=== PATIENT | male | born 1950 | race Caucasian/White ===

== ENCOUNTER → 2016-09-12 | Outpatient (CLI) | payer OTHER ==
--- NOTE | 2016-09-12 18:29 | CPEEG ---
[f rep st] ELECTROENCEPHALOGRAM FOUR-HOUR VIDEO EEG DATE OF STUDY: 09/12/2016 INTERPRETATION: This 4-hour video EEG is abnormal due to the presence of generalized atypical spike and wave discharges. 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 During the video EEG monitoring session, the patient did not have any clinical events. REPORT: This 4-hour video EEG contains 9 Hz alpha to the posterior head regions. The primary feature of this recording was the presence of generalized atypical spike and wave discharges. There was some additional activation with hyperventilation. There was no additional activation with photic stimulation. The patient became drowsy and fell asleep during the study. During drowsiness and sleep, there was increased activation of generalized atypical spike and wave discharges. These were typically anterior dominant in terms of amplitudes and had shifting asymmetry. During the video EEG monitoring session, the patient did not have any clinical events. /[id number]/MODL MTDD
== END ==
LOC: FIMAGING 07:25
PROVIDERS: ATTEND Psychiatry & Neurology Neurology
DX: G40.909 Epilepsy, unspecified, not intractable, without status epilepticus (principal)

== ENCOUNTER 2016-10-17 03:24 | Emergency (ER) | payer OTHER ==
[2016-10-17 03:33] VITALS: TEMP 98.1
[2016-10-17] MEDS ORDERED: KETOROLAC 15 MG/1 ML SDV ONE (03:33)
[2016-10-17] MEDS ORDERED: KETOROLAC 30 MG/1 ML SDV IVP ONE (03:40)
--- NOTE | 2016-10-17 04:07 | EDPHY ---
H & P Stated Complaint: spontaneous left globe rupture Time Seen by Provider: 10/17/16 03:34 HPI/ROS: HPI The patient presents brought in by ambulance with concern for left globe rupture after acute vision loss. On September 24, the patient had an ophthalmological procedure with Dr. Kamran Flowers, he had scrubbing of a scleral band with an amniotic membrane placed with a hard contact. Over the last several days he had had increased pain of the left off eye. He was seen by an tunnel drier operator yesterday and reports that things looked okay. He has been using antibiotic eyedrops as well as steroid eyedrops. Tonight, he leaned over to chicken picker his bottle of eyedrops and felt sudden onset of fluid which was thick from his left eye. Had severe pain and his vision immediately was diminished. REVIEW OF SYSTEMS Constitutional: No fever, no chills. Eyes: See HPI ENT: No sore throat. Skin: No rashes. Neurological: No headache. PMHx: As above, history of retinal detachment with vitrectomy Soc Hx: Housed PHYSICAL General Appearance: Alert, uncomfortable Eyes: Left eye with thick drainage surrounding eyelid, limited examination because of pain, globe appears flat and opaque ENT, Mouth: Mucous membranes moist Respiratory: There are no retractions, lungs are clear to auscultation Cardiovascular: Regular rate and rhythm Gastrointestinal: Abdomen is soft and non-tender, no masses, bowel sounds normal Neurological: A&O, moves all extremities Skin: Warm and dry, no rashes Musculoskeletal: Neck is supple non tender Extremities: symmetrical, full range of motion Psychiatric: Patient is oriented X 3, there is no agitation Source: Patient, EMS - Medical/Surgical History Hx Asthma: No Hx Chronic Respiratory Disease: No Hx Diabetes: No Hx Cardiac Disease: No Hx Renal Disease: No Hx Cirrhosis: No Hx Alcoholism: No Hx HIV/AIDS: No Hx Splenectomy or Spleen Trauma: No Other PMH: psh: r knee; testicular removal R; lymphnoid disection; T&A; l eye;. PMH: testicular ca; seizures; - Social History Smoking Status: Never smoked Constitutional: Initial Vital Signs Temperature (C) 36.7 C 10/17/16 03:30 Heart Rate 74 10/17/16 03:30 Blood Pressure 157/107 H 10/17/16 03:30 O2 Delivery Mode Nasal Cannula O2 (L/minute) 2 Allergies/Adverse Reactions: No Known Allergies Allergy (Unverified 10/17/16 03:29) Home Medications: Medication Instructions Recorded Dilantin 06/01/15 PHENobarbital 06/01/15 Phenytoin 10/17/16 Medical Decision Making - Diagnostics Imaging: CT orbits without contrast demonstrates left globe rupture, discussed with Dr. Ortega of Radiology. ED Course/Re-evaluation: 4:05 a.m.- patient has received morphine and Toradol for his pain, however pain persists. I will give additional morphine. We have put out a page to the patient's ophthalmology group. His CT scan does reveal left globe rupture. 4:30 a.m.- I spoke with Dr. Flowers the patient's tunnel drier operator. [place] and is unable to assist at this time. He feels the patient needs a corneal specialist. We do not have an tunnel drier operator with this expertise here. I will begin to look to transfer the patient to [facility]. 5:00 a.m.- I have discussed the case with the [facility] doctor line. I have spoken with the tunnel drier operator Dr. Chester who will accept the patient for transfer. I discussed the case with the ER doctor Dr. Gross who is also aware of the patient. The patient has received antibiotics, tetanus vaccine was administered about 1 year ago, we are arranging for transfer. The patient is having significant pain and we will continue to treat this as needed. Differential Diagnosis: This is a 65-year-old man with recent left eye operation who now presents with concern for globe rupture spontaneously. Differential diagnosis includes globe rupture retinal detachment, corneal abrasion, corneal laceration. - Data Points Laboratory Results: 10/17/16 03:24 POC Hgb 16.0 gm/dL gm/dL (14.5-17.3) POC Hct 47 % % (42.8-50.6) POC Sodium 142 mEq/L mEq/L (134-144) POC Potassium 4.1 mEq/L mEq/L (3.3-5.0) POC Chloride 104 mEq/L mEq/L (96-108) POC BUN 14 mg/dL mg/dL (7-23) POC Creatinine 1.0 mg/dL mg/dL (0.8-1.5) POC Glucose 101 mg/dL H mg/dL (70-100) Medications Given: Discontinued Medications Hydromorphone HCl (Dilaudid) 1 mg IVP EDNOW ONE Stop: 10/17/16 04:35 Last Admin: 10/17/16 04:10 Dose: 1 mg Morphine Sulfate (Morphine) 2 mg IVP EDNOW ONE Stop: 10/17/16 03:46 Last Admin: 10/17/16 03:45 Dose: 2 mg Point of Care Test Results: 10/17/16 03:24 POC Sodium 142 POC Potassium 4.1 POC Chloride 104 POC BUN 14 POC Creatinine 1.0 POC Glucose 101 H Departure - Departure Disposition: Acute Care Hospital [facility] Clinical Impression: Ruptured globe, left eye Condition: Fair Referrals: Patient,NotPresent [Unknown] - As per Instructions
[2016-10-17] MEDS ORDERED: HYDROmorphONE/DILAUDID 1 MG/ML SYR ONE (04:19)
[2016-10-17] MEDS ORDERED: VANCOMYCIN HCL/NORMAL SALINE 250 ML IV ONE (04:27)
[2016-10-17] MEDS ORDERED: HYDROmorphONE/DILAUDID 1 MG/ML SYR IVP ONE ×3 (04:34→06:30)
[2016-10-17 04:44] VITALS: RESP 20; O2SAT 97
[2016-10-17] MEDS ORDERED: MIDAZOLAM 2 MG/2 ML VIAL ONE (05:07)
[2016-10-17] MEDS ORDERED: MIDAZOLAM 2 MG/2 ML VIAL IVP ONE (05:14)
[2016-10-17] MEDS ORDERED: cefTAZidime PENTAHYDRATE 2 GM in NS 100 ML IV SCH (06:00)
[2016-10-17 06:58] VITALS: BP 121/80; PULSE 69
== END 2016-10-17 06:58 | disposition short-term general hospital (02) ==
LOC: EDUNIT#
DX: H57.8 Other specified disorders of eye and adnexa (principal); C62.90 Malignant neoplasm of unspecified testis, unspecified whether descended or undescended
CPT/HCPCS: 82947-QW; 96365; J0713; J1170; J1885; J2250; J3370

== ENCOUNTER 2018-07-07 09:29 | Inpatient (IN) | payer OTHER ==
[2018-07-07] MEDS ORDERED: NS 1,000 ML IV ONE (09:44)
[2018-07-07] MEDS ORDERED: fentaNYL 100 MCG/2 ML INJ IVP ONE (09:44)
[2018-07-07] MEDS ORDERED: ONDANSETRON 4 MG/2 ML VIAL IVP ONE (09:44)
--- NOTE | 2018-07-07 09:51 | EDPHY ---
HPI/HX/ROS/PE/MDM Narrative: CLINICAL IMPRESSION: Small-bowel obstruction, nausea and vomiting ASSESSMENT/PLAN: 67-year-old male with past medical history of seizures presents to the emergency department with diffuse abdominal pain, nausea and vomiting since this morning. Patient arrives appearing very uncomfortable, writhing in pain , but afebrile. Abdomen is soft, nonrigid, no focal peritoneal findings. Patient several doses of IV antiemetic and analgesics for pain relief. Labs are reassuring, no leukocytosis, transaminitis, renal insufficiency or electrolyte imbalance. Patient has had a prior orchidectomy with radical lymph node dissection in the abdomen but no other reported abdominal surgery. CT scan read by Radiology as suggestive of small-bowel obstruction with transition point in the right upper quadrant or central abdomen. There is associated mesenteric edema. An NG-tube was placed in the ER. Discussed with Dr. Martell from general surgery who accepts admission. Imaging and lab results as well as admission recommendations discussed with the patient who agrees. Patient was stabilized in the ED before transfer to the floor. Case discussed with Dr. Isaac. DIFFERENTIAL DX: Abdominal pain includes but not limited to acute appendicitis, diverticulitis, cholecystitis, pancreatitis, SBO, gastroenteritis, constipation ED PROCEDURES: See lab and imaging results below. NG placed by ED RN ED COURSE: 11:10 a.m.:. CT scan discussed with Radiology, Dr. Ortega, patient appears to have a small-bowel obstruction with transition point possibly in the right upper quadrant or central abdomen although difficult to a say given numerous previous surgical clips. There is associated mesenteric edema. Results discussed with the patient and Dr. Isaac. Patient states he is still in 10/10 pain. NG ordered. Additional pain medication ordered. General surgery paged 11:20 a.m.: Case discussed with general surgeon Dr. Martell. He accepts patient admission. Bed ordered. CHIEF COMPLAINT: Abdominal pain, nausea, and vomiting HPI: This is a 67-year-old male with past medical history of seizures who presents to the emergency department with approximately 6 hr of generalized abdominal cramping rated as"12/10"associated with nausea and 5 episodes of nonbilious, nonbloody vomiting. No associated diarrhea, patient had a well-formed stool this morning. No reported fever or chills. He ate leftover vegetable keen while last night. He lives alone and no one else ate the same thing. He has had a large self-diagnosed sebaceous cyst along the right breast and has an appointment tomorrow with General surgery for further evaluation. He reports this has been getting generally worse over the last several weeks. He denies chest pain and shortness of breath. He has had a prior right orchiectomy secondary to testicular cancer and reports no pain into the left testicle and no associated UTI symptoms or flank pain. No recent antibiotics or travel. He has not taken his seizure medication this morning. He took Gas-X before arrival. PMH: Testicular cancer in the 80s with radical lymph node dissection in the abdomen, seizures Pertinent Past Surgical History: Left eye surgery, tonsillectomy and adenoidectomy, right orchiectomy, right knee surgery Family History: None reported Social History: Nonsmoker REVIEW OF SYSTEMS: All other systems negative Constitutional: No fever, no chills, positive for appetite change. ENT: No sore throat, congestion, ear pain. Cardiovascular: No chest pain, no palpitations. Respiratory: No cough, no shortness of breath. Gastrointestinal: Positive for abdominal pain, vomiting, negative diarrhea Genitourinary: No hematuria, dysuria, flank pain, pelvic pain Musculoskeletal: No back pain, joint swelling, joint pain, myalgias. Skin: No rashes, color change. Neurological: No headache, dizziness, weakness. PHYSICAL EXAM: General Appearance: Alert, oriented, appropriate, cooperative, appears uncomfortable, bradycardic at 53, tachypneic at 24, normotensive, dry heaving, complaining of 12/10 abdominal pain HEENT: Oropharynx clear is no erythema or exudates, no tonsillar hypertrophy or asymmetry. Dentition without abnormality. Neck: Supple, nontender, no lymphadenopathy, no midline pain, FROM, no meningismus. Respiratory: There are no retractions, lungs are clear to auscultation. Right inferior breast with large, firm mass with underlying erythematous changes measuring approximately 6 cm x 4 cm Cardiac: Regular rate and rhythm, no murmurs or gallops. Gastrointestinal: Abdomen is soft, generalized tenderness throughout, hypoactive bowel sounds normal, no masses/hernia, no rigidity, guarding or focal peritoneal findings. Neurological: Alert and oriented x 3, CN 2-12 grossly intact Skin: Warm, dry, no rashes, no nodules on palpation. Appears pale Musculoskeletal: Extremities are symmetrical, full range of motion, no tenderness, deformity, swelling, or erythema. Psychiatric: Patient is oriented X 3, there is no agitation. MEDICAL DECISION MAKING: Patient was seen independently. Secondary supervising physician at time of evaluation was Dr. Isaac . Diagnosis: Small-bowel obstruction, nausea and vomiting. New, requires workup Summary: See Assessment and Plan for summary of ED visit Clinical lab tests: ordered / reviewed. Independent visualization of images, tracing, or specimens: Yes. Discussed patient with another provider: Dr. Isaac, Dr. Ortega, Dr. Martell Patient Progress: Stable. (Krish Arevalo) MDM: Independent physician evaluation: I evaluated and participated in the management of the patient. I also evaluated the patient independently. My co-signature indicates that I have reviewed this chart and I agree with the findings and plan of care as documented. My personal H&P findings include: The patient presents the ED with severe abdominal pain retching that began early this morning. The patient has remote history of testicular cancer status post lymph node dissection in the 80s. The patient denies any history of appendectomy or cholecystectomy. The patient does have a history prior hernia repair. Patient denies significant diarrhea. He reports severe pain. Physical exam: General Appearance: Alert, no distress Eyes: Pupils equal and round no pallor or injection ENT, Mouth: Mucous membranes moist Respiratory: There are no retractions, lungs are clear to auscultation Cardiovascular: Regular rate and rhythm Gastrointestinal: Diffuse tenderness to palpation with distension, hypoactive bowel sounds Neurological: 5/5 strength noted all 4 extremities Skin: Warm and dry, no rashes Musculoskeletal: Neck is supple nontender Extremities: symmetrical, full range of motion ED course: Patient had an IV established. He received a L normal saline. He received IV pain medications. Patient is observed to have a normal creatinine and renal function. Stat CT scan of the abdomen and pelvis was ordered which demonstrates a small bowel obstruction. An NG tube has been ordered. Consultation with surgery has been requested. The patient will be admitted to the hospital. (Kapil Isaac) - Data Points Laboratory Results: Laboratory Results 07/07/18 09:50 07/07/18 09:50 07/07/18 07/07/18 09:50 09:50 WBC 8.65 10^3/uL 10^3/uL (3.80-9.50) RBC 4.45 10^6/uL 10^6/uL (4.40-6.38) Hgb 14.9 g/dL g/dL (13.7-17.5) Hct 43.5 % % (40.0-51.0) MCV 97.8 fL fL (81.5-99.8) MCH 33.5 pg pg (27.9-34.1) MCHC 34.3 g/dL g/dL (32.4-36.7) RDW 12.7 % % (11.5-15.2) Plt Count 203 10^3/uL 10^3/uL (150-400) MPV 9.5 fL fL (8.7-11.7) Neut % (Auto) 86.3 % H % (39.3-74.2) Lymph % (Auto) 7.7 % L % (15.0-45.0) [place] % (Auto) 5.5 % % (4.5-13.0) Eos % (Auto) 0.1 % L % (0.6-7.6) Baso % (Auto) 0.2 % L % (0.3-1.7) Nucleat RBC Rel Count 0.0 % % (0.0-0.2) Absolute Neuts (auto) 7.45 10^3/uL H 10^3/uL (1.70-6.50) Absolute Lymphs (auto) 0.67 10^3/uL L 10^3/uL (1.00-3.00) Absolute Monos (auto) 0.48 10^3/uL 10^3/uL (0.30-0.80) Absolute Eos (auto) 0.01 10^3/uL L 10^3/uL (0.03-0.40) Absolute Basos (auto) 0.02 10^3/uL 10^3/uL (0.02-0.10) Absolute Nucleated RBC 0.00 10^3/uL 10^3/uL (0-0.01) Immature Gran % 0.2 % % (0.0-1.1) Immature Gran # 0.02 10^3/uL 10^3/uL (0.00-0.10) Sodium 138 mEq/L mEq/L (135-145) Potassium 4.3 mEq/L mEq/L (3.5-5.2) Chloride 103 mEq/L mEq/L (97-110) Carbon Dioxide 24 mEq/l mEq/l (22-31) Anion Gap 11 mEq/L mEq/L (6-14) BUN 17 mg/dL mg/dL (7-23) Creatinine 0.7 mg/dL mg/dL (0.7-1.3) Estimated GFR > 60 Glucose 163 mg/dL H mg/dL (70-100) Calcium 9.7 mg/dL mg/dL (8.5-10.4) Total Bilirubin 0.5 mg/dL mg/dL (0.1-1.4) Conjugated Bilirubin 0.2 mg/dL mg/dL (0.0-0.5) Unconjugated Bilirubin 0.3 mg/dL mg/dL (0.0-1.1) AST 25 IU/L IU/L (17-59) ALT 29 IU/L IU/L (21-72) Alkaline Phosphatase 96 IU/L IU/L (38-126) Total Protein 7.5 g/dL g/dL (6.3-8.2) Albumin 4.7 g/dL g/dL (3.5-5.0) Lipase 148 IU/L IU/L (23-300) Medications Given: Discontinued Medications Diphenhydramine HCl (Benadryl Injection) 25 mg IVP EDNOW ONE Stop: 07/07/18 10:13 Last Admin: 07/07/18 10:32 Dose: 25 mg Fentanyl (Sublimaze) 50 mcg IVP EDNOW ONE Stop: 07/07/18 09:45 Last Admin: 07/07/18 10:04 Dose: 50 mcg Hydromorphone HCl (Dilaudid) 0.5 mg IVP EDNOW ONE Stop: 07/07/18 10:20 Last Admin: 07/07/18 10:32 Dose: 0.5 mg Sodium Chloride (Ns) 1,000 mls @ 0 mls/hr IV EDNOW ONE; Wide Open PRN Reason: Protocol Stop: 07/07/18 09:45 Last Admin: 07/07/18 10:05 Dose: 1,000 mls Metoclopramide HCl (Reglan Injection) 10 mg IVP EDNOW ONE Stop: 07/07/18 10:13 Last Admin: 07/07/18 10:32 Dose: 10 mg Ondansetron HCl (Zofran) 4 mg IVP EDNOW ONE Stop: 07/07/18 09:45 Last Admin: 07/07/18 10:05 Dose: 4 mg General Time Seen by Provider: 07/07/18 09:35 Initial Vital Signs: Initial Vital Signs Temperature (C) 36.7 C 07/07/18 09:31 Heart Rate 53 L 07/07/18 09:31 Respiratory Rate 24 H 07/07/18 09:31 Blood Pressure 122/90 H 07/07/18 09:31 O2 Sat (%) 95 07/07/18 09:31 O2 Delivery Mode Room Air Allergies/Adverse Reactions: No Known Allergies Allergy (Verified 07/07/18 09:30) Home Medications: Medication Instructions Recorded Dilantin 06/01/15 PHENobarbital 06/01/15 Phenytoin 10/17/16 Departure - Departure Disposition: [facility] Clinical Impression: Small bowel obstruction Nausea & vomiting Qualifiers: Vomiting type: unspecified Vomiting Intractability: non-intractable Qualified Code(s): R11.2 - Nausea with vomiting, unspecified
[2018-07-07 10:02] LABS: PLATELET COUNT 203 10^3/uL (150-400)
[2018-07-07] MEDS ORDERED: METOCLOPRAMIDE 10 MG/2 ML VIAL IVP ONE (10:12)
[2018-07-07] MEDS ORDERED: HYDROmorphONE/DILAUDID 2 MG/ML INJ IVP ONE ×2 (10:19→11:13)
[2018-07-07] MEDS ORDERED: IOPAMIDOL (ISOVUE-300) 100 ML BTL ONE (10:27)
[2018-07-07] MEDS ORDERED: METOCLOPRAMIDE 10 MG/2 ML VIAL IVP PRN (11:50)
[2018-07-07] MEDS ORDERED: LORazepam 2 MG/ML INJ IVP PRN (11:50)
[2018-07-07] MEDS ORDERED: ONDANSETRON DISINTEGRATING 4 MG TAB PO PRN (11:50)
[2018-07-07] MEDS ORDERED: PROMETHAZINE HCL 25 MG/ML INJ IVP PRN (11:50)
--- NOTE | 2018-07-07 11:57 | PDGENHP ---
History and Physical - Chief Complaint abdominal pain with nausea and vomiting - History of Present Illness 67yo M presents with acute onset abdominal pain with nausea and vomiting. Briefly, was in his usual state of health last evening. Ate dinner, went to bed and awoke at 0300 with abdominal pain. This was fairly severe per his report and was shortly thereafter followed with nausea and vomiting. He describes the pain as colicky, R>L sided and 10/10 in intensity with cramps, when the cramps reside it is 3/10 baseline. He called a [place]. He denies any fevers or chills. His las BM was this AM and other than being small it was normal. He has never had symptoms like this before in his life. 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 Review of Systems Review of Systems: ROS: 10pt was reviewed & negative except for what was stated in HPI & below Physical Exam Physical Exam: Temp Pulse Resp BP Pulse Ox 37 C 50 L 18 135/78 H 99 07/07/18 10:06 07/07/18 10:06 07/07/18 10:06 07/07/18 10:06 07/07/18 10:06 Constitutional: appears nourished, not in pain, other (mild distress with abd cramps ) Eyes: PERRL, anicteric sclera, EOMI Ears, Nose, Mouth, Throat: moist mucous membranes, hearing normal, ears appear normal, no oral mucosal ulcers Cardiovascular: regular rate and rhythym, no murmur, rub, or gallop, No edema Respiratory: no respiratory distress, no rales or rhonchi, clear to auscultation Gastrointestinal: other (soft, minimally distended, tender to deep palpation, no rebound or guarding, large well healed midline scar is present ) Genitourinary: no bladder fullness, no bladder tenderness Skin: warm, normal color, no rashes or abrasions, no fluctuance, no induration, No mottled Musculoskeletal: full muscle strength, no muscle tenderness, normal joint ROM, no joint effusions Neurologic: AAOx3, sensation intact bilaterally, No weakness, No numbness Psychiatric: interacting appropriately, not anxious, not encephalopathic, thought process linear Lymph, Heme, Immunologic: no cervical LAD, no supraclavicular LAD Lab Data & Imaging Review 07/07/18 09:50 07/07/18 09:50 WBC 8.65 10^3/uL (3.80-9.50) 07/07/18 09:50 RBC 4.45 10^6/uL (4.40-6.38) 07/07/18 09:50 Hgb 14.9 g/dL (13.7-17.5) 07/07/18 09:50 Hct 43.5 % (40.0-51.0) 07/07/18 09:50 MCV 97.8 fL (81.5-99.8) 07/07/18 09:50 MCH 33.5 pg (27.9-34.1) 07/07/18 09:50 MCHC 34.3 g/dL (32.4-36.7) 07/07/18 09:50 RDW 12.7 % (11.5-15.2) 07/07/18 09:50 Plt Count 203 10^3/uL (150-400) 07/07/18 09:50 MPV 9.5 fL (8.7-11.7) 07/07/18 09:50 Neut % (Auto) 86.3 % (39.3-74.2) H 07/07/18 09:50 Lymph % (Auto) 7.7 % (15.0-45.0) L 07/07/18 09:50 [place] % (Auto) 5.5 % (4.5-13.0) 07/07/18 09:50 Eos % (Auto) 0.1 % (0.6-7.6) L 07/07/18 09:50 Baso % (Auto) 0.2 % (0.3-1.7) L 07/07/18 09:50 Nucleat RBC Rel Count 0.0 % (0.0-0.2) 07/07/18 09:50 Absolute Neuts (auto) 7.45 10^3/uL (1.70-6.50) H 07/07/18 09:50 Absolute Lymphs (auto) 0.67 10^3/uL (1.00-3.00) L 07/07/18 09:50 Absolute Monos (auto) 0.48 10^3/uL (0.30-0.80) 07/07/18 09:50 Absolute Eos (auto) 0.01 10^3/uL (0.03-0.40) L 07/07/18 09:50 Absolute Basos (auto) 0.02 10^3/uL (0.02-0.10) 07/07/18 09:50 Absolute Nucleated RBC 0.00 10^3/uL (0-0.01) 07/07/18 09:50 Immature Gran % 0.2 % (0.0-1.1) 07/07/18 09:50 Immature Gran # 0.02 10^3/uL (0.00-0.10) 07/07/18 09:50 Sodium 138 mEq/L (135-145) 07/07/18 09:50 Potassium 4.3 mEq/L (3.5-5.2) 07/07/18 09:50 Chloride 103 mEq/L (97-110) 07/07/18 09:50 Carbon Dioxide 24 mEq/l (22-31) 07/07/18 09:50 Anion Gap 11 mEq/L (6-14) 07/07/18 09:50 BUN 17 mg/dL (7-23) 07/07/18 09:50 Creatinine 0.7 mg/dL (0.7-1.3) 07/07/18 09:50 Estimated GFR > 60 07/07/18 09:50 Glucose 163 mg/dL (70-100) H 07/07/18 09:50 Calcium 9.7 mg/dL (8.5-10.4) 07/07/18 09:50 Total Bilirubin 0.5 mg/dL (0.1-1.4) 07/07/18 09:50 Conjugated Bilirubin 0.2 mg/dL (0.0-0.5) 07/07/18 09:50 Unconjugated Bilirubin 0.3 mg/dL (0.0-1.1) 07/07/18 09:50 AST 25 IU/L (17-59) 07/07/18 09:50 ALT 29 IU/L (21-72) 07/07/18 09:50 Alkaline Phosphatase 96 IU/L (38-126) 07/07/18 09:50 Total Protein 7.5 g/dL (6.3-8.2) 07/07/18 09:50 Albumin 4.7 g/dL (3.5-5.0) 07/07/18 09:50 Lipase 148 IU/L (23-300) 07/07/18 09:50 Visualized and Interpreted imaging results: Yes Interpretation: CT: SBO, transition in R abdomen, no free fluid or free air. Many RP clips from previous RPLND Assessment & Plan Assessment: Nausea & vomiting (Acute) Small bowel obstruction (Acute) Plan: 67yo M c SBO - discussed with him the cause and natural history of bowel obstructions. This is likely 2/2 adhesions and most of these resolve with time, bowel rest and hydration - plan will be to place NGT in ED, LIWS - Hydrate with IVF - takes multiple meds for seizures, hasnt had one in many years. Will hopefully be able to clamp tube for meds in AM. Decompress today - ambulation, pain control and IV nausea meds.
[2018-07-07] MEDS: D5W 1/2 NS W/ 20 KCl/L 1,000 ML IV SCH ×2 (12:28→23:30)
[2018-07-07] MEDS: HYDROmorphONE/DILAUDID 1 MG/ML INJ IVP PRN ×5 (12:31→23:26)
[2018-07-07] MEDS: KETOROLAC 30 MG/1 ML SDV IVP PRN (16:16)
[2018-07-07] MEDS: Difluprednate [Durezol] 1 DROP LEFTEYE SCH ×2 (16:19→23:33)
[2018-07-07] MEDS: LORazepam 2 MG/ML INJ IVP PRN ×2 (16:31→19:57)
--- NOTE | 2018-07-07 19:21 | PDMN ---
Medical Necessity Medical necessity: MCG M210 intestinal obstruction: 2 days- pt presents with abd pain, N/V CT shows SBO NG tube placed pt will remain on bowel rest NPO, NG tube, IVF, IV antiemetic's, IV pain anticipate > 2 MN ongoing med nec care
[2018-07-08] MEDS: KETOROLAC 30 MG/1 ML SDV IVP PRN ×2 (01:01→11:00)
[2018-07-08] MEDS: HYDROmorphONE/DILAUDID 1 MG/ML INJ IVP PRN ×4 (04:03→17:46)
[2018-07-08] MEDS: LORazepam 2 MG/ML INJ IVP PRN (06:19)
[2018-07-08] MEDS: Difluprednate [Durezol] 1 DROP LEFTEYE SCH ×3 (08:13→21:05)
[2018-07-08] MEDS ORDERED: PHENYTOIN SODIUM EXTENDED 100 MG CAP PO SCH (09:00)
[2018-07-08] MEDS: NS 1,000 ML IV SCH (11:01)
[2018-07-08] MEDS: ONDANSETRON 4 MG/2 ML VIAL IVP PRN (11:01)
[2018-07-08] MEDS: PHENYTOIN SODIUM 100 MG/2 ML VIAL IV SCH ×3 (12:14→21:03)
[2018-07-08] MEDS: PHENOBARBITAL 32.4 MG PO SCH ×3 (12:15→21:03)
--- NOTE | 2018-07-08 13:02 | SOAPPROG ---
STEW Progress Note Assessment/Plan: Assessment: 67yo M c SBO - VSS, HDs - pain is actually better today - he is passing flatus - some nausea and vomiting after contrast load,this is resolving - SBFT: contrast mostly still in stomach, no transport to colon at 3.5hrs, will follow - given his pain improvement and flatus will watch overnight. If no improvement by tomorrow AM will likely need exploration Plan: 07/08/18 13:01 Subjective: pain is a little better Objective: Vital Signs Temp Pulse Resp BP Pulse Ox 36.9 C 75 17 132/78 H 97 07/08/18 12:44 07/08/18 12:44 07/08/18 12:44 07/08/18 12:44 07/08/18 12:44 Laboratory Results 07/08/18 04:40 07/07/18 07/08/18 07/09/18 05:59 05:59 05:59 Intake Total 1691 Output Total 850 Balance 841 ICD10 Worksheet Patient Problems: Problems Problem Status Onset Nausea & vomiting Acute Small bowel obstruction Acute
[2018-07-09] MEDS: LORazepam 2 MG/ML INJ IVP PRN ×2 (01:54→21:47)
[2018-07-09] MEDS: HYDROmorphONE/DILAUDID 1 MG/ML INJ IVP PRN ×5 (01:55→20:50)
--- NOTE | 2018-07-09 08:46 | SOAPPROG ---
SOAP Progress Note Assessment/Plan: Assessment: 67yo M c SBO - VSS, HDs - more pain today, more distended - NGT with high output. Belly more painful - to OR today for exploration Plan: 07/08/18 13:01 07/09/18 08:45 Subjective: feels worse Objective: Vital Signs Temp Pulse Resp BP Pulse Ox 36.8 C 86 18 145/78 H 89 L 07/09/18 07:34 07/09/18 07:34 07/09/18 07:34 07/09/18 07:34 07/09/18 07:34 Laboratory Results 07/09/18 04:42 07/09/18 04:42 07/08/18 07/09/18 07/10/18 05:59 05:59 05:59 Intake Total 1691 Output Total 850 6100 Balance 841 -6100 ICD10 Worksheet Patient Problems: Problems Problem Status Onset Nausea & vomiting Acute Small bowel obstruction Acute
[2018-07-09] MEDS: PHENYTOIN SODIUM 100 MG/2 ML VIAL IV SCH ×3 (09:30→21:36)
[2018-07-09] MEDS: PHENOBARBITAL 32.4 MG PO SCH ×3 (09:30→21:35)
[2018-07-09] MEDS: Difluprednate [Durezol] 1 DROP LEFTEYE SCH ×3 (09:31→21:43)
[2018-07-09] MEDS: NS 1,000 ML IV SCH ×2 (10:37→21:47)
--- NOTE | 2018-07-09 14:46 | ASMTCASEMG ---
Living Arrangements What is your living Answers: Alone arrangement? Who do you live with? Type Of Residence What kind of residence do Answers: Apartment you live in? Discharge Plan Comments Coordination Status Comments Notes: Patient is a 67yo male who comes to [facility] with abdominal pain, nausea, and vomiting. Patient has been admitted for acute bowel obstruction, nausea and vomiting. Spoke with the patient's nurse who states patient went to the OR today for exploration. PT has been ordered for the patient. D/C plan TBD. CM will follow. Date Signed: 07/09/2018 02:45 PM Electronically Signed By:Corinna Dodd LCSW
[2018-07-09] MEDS ORDERED: BUPIVACAINE 0.5% 30 ML SDV ONE (15:16)
[2018-07-09] MEDS ORDERED: LR 1,000 ML IV ONE (15:39)
--- NOTE | 2018-07-09 15:48 | PDHPUP ---
History & Physical Update H&P update statement: This history and physical update is based on an assessment of the patient which was completed after admission or registration (within 24 hours), but prior to the surgery/procedure. H&P update: H&P reviewed & patient examined, no change in patient's condition since H&P completed
[2018-07-09] MEDS ORDERED: CEFAZOLIN 2 GM/DEXTROSE/100 ML BAG IV ONE (15:57)
[2018-07-09] MEDS ORDERED: MIDAZOLAM 2 MG/2 ML VIAL ONE (15:57)
[2018-07-09] MEDS ORDERED: MIDAZOLAM 2 MG/2 ML VIAL IVP ONE (16:01)
--- NOTE | 2018-07-09 16:03 | PDANEPAE ---
ANE Past Medical History - Cardiovascular History Hx Hypertension: No Hx Arrhythmias: No Hx Chest Pain: No Hx Coronary Artery / Peripheral Vascular Disease: No Hx CHF / Valvular Disease: No Hx Palpitations: No - Pulmonary History Hx COPD: No Hx Asthma/Reactive Airway Disease: No Hx Oxygen in Use at Home: No Hx Sleep Apnea: No Sleep Apnea Screening Result - Last Documented: Positive - Endocrine History Hx Diabetes: No Obesity: no ANE Review of Systems Review of Systems: ANE Patient History - Allergies Allergies/Adverse Reactions: No Known Allergies Allergy (Verified 07/07/18 09:30) - Home Medications Home medications: home medication list seen and reviewed Home Medications: Phenobarbital 32.4 mg PO TID 06/01/15 [Last Taken 07/06/18] Phenytoin Sodium Extended [Dilantin (*)] 100 mg PO TID 10/17/16 [Last Taken ] Difluprednate [Durezol] 1 drop LEFTEYE TID 07/07/18 [Last Taken 07/06/18] - NPO status NPO Since - Liquids (Date): 07/07/18 NPO Since - Liquids (Time): 23:00 NPO Since - Solids (Date): 07/07/18 - Anes Hx Anes Hx: no prior problems - Smoking Hx Smoking Status: Never smoked - Alcohol Use Alcohol Use: None ANE Labs/Vital Signs - Labs Result Diagrams: 07/09/18 04:42 07/09/18 04:42 - Vital Signs Blood Pressure: 148/83 Heart Rate: 73 Respiratory Rate: 16 O2 Sat (%): 95 Height: 175.26 cm Weight: 72.575 kg ANE Physical Exam - Airway Neck exam: FROM Mallampati Score: Class 2 Mouth exam: normal dental/mouth exam - Pulmonary Pulmonary: no respiratory distress, no rales or rhonchi, clear to auscultation - Cardiovascular Cardiovascular: regular rate and rhythym, no murmur, rub, or gallop - ASA Status ASA Status: II ANE Anesthesia Plan Anesthesia Plan: general endotracheal anesthesia
[2018-07-09] MEDS ORDERED: PROPOFOL 200 MG/20 ML VIAL ONE (16:14)
[2018-07-09] MEDS ORDERED: DEXAMETHASONE 4 MG/ML VIAL ONE ×2 (16:16)
[2018-07-09] MEDS ORDERED: ONDANSETRON 4 MG/2 ML VIAL ONE (16:16)
[2018-07-09] MEDS ORDERED: LIDOCAINE 2% 5 ML SDV ONE (16:16)
[2018-07-09] MEDS ORDERED: ROCURONIUM 50 MG/5 ML VIAL ONE ×2 (16:16→17:10)
[2018-07-09] MEDS ORDERED: DEXMEDETOMIDINE HCL 200 MCG in NS 50 ML IV ONE (17:00)
[2018-07-09] MEDS ORDERED: ONDANSETRON 4 MG/2 ML VIAL IVP PRN (17:37)
[2018-07-09] MEDS ORDERED: HYDROmorphONE/DILAUDID 2 MG/ML INJ IVP PRN (17:37)
[2018-07-09] MEDS ORDERED: PHENYLEPHRINE HCL 100 MCG/ML SYR IVP PRN (17:37)
[2018-07-09] MEDS ORDERED: MEPERIDINE 25 MG/0.5 ML AMP IVP PRN (17:37)
[2018-07-09] MEDS ORDERED: PROMETHAZINE HCL 25 MG/ML INJ IVP PRN (17:37)
[2018-07-09] MEDS ORDERED: ceFAZolin 2 GM/DEXTROSE 100 ML IV ONE (17:37)
[2018-07-09] MEDS ORDERED: NALOXONE HCL 0.4 MG/ML INJ IVP PRN (17:37)
[2018-07-09] MEDS ORDERED: SUGAMMADEX SODIUM 200 MG/2 ML VIAL IVP ONE (17:39)
[2018-07-09] MEDS ORDERED: PHENYLEPHRINE HCL 100 MCG/ML SYR ONE (17:39)
--- NOTE | 2018-07-09 18:11 | POSTOPPROG ---
Post Op Note Date of Operation: 07/09/18 Surgeon: Syed Martell Event Coordinator Marketing And Sales: Marilyn Rapp, PAC Anesthesiologist: Gunnar Rubio Anesthesia: GET(General Endotracheal) Pre-op Diagnosis: SBO Post-op Diagnosis: bowel 2/2 internal hernia Procedure: Ex-lap, small bowel resxn, appendectomy, 1 mosis, washout Findings: 70cm small bowel, resected. No abscess Inf/Abcess present in the surg proc area at time of surgery?: No EBL: 50-100 Total fluids administered: 3L Ns washout Specimen(s): small bowel appendix
--- NOTE | 2018-07-09 18:16 | POSTANESTH ---
Post Anesthetic Evaluation Cardiovascular Status: Normal, Stable Respiratory Status: Normal, Stable Level of Consciousness/Mental Status: Can Participate in Eval Pain Control: Adequate, Prn Tx Ordered Nausea/Vomiting Control: Adequate, Prn Tx Ordered Complications Possibly Related to Anesthesia: None Noted
[2018-07-09] MEDS ORDERED: fentaNYL 100 MCG/2 ML INJ ONE (18:24)
[2018-07-09] MEDS: fentaNYL 100 MCG/2 ML INJ IVP PRN ×2 (18:27→18:34)
[2018-07-09] MEDS: ERTAPENEM 1 GM in NS 100 ML IV SCH (19:25)
[2018-07-09] MEDS: ACETAMINOPHEN 325 MG TAB PO PRN (22:51)
[2018-07-10] MEDS: PHENYTOIN SODIUM 100 MG/2 ML VIAL IV SCH ×3 (08:40→21:19)
[2018-07-10] MEDS: KETOROLAC 30 MG/1 ML SDV IVP PRN ×3 (08:43→21:19)
[2018-07-10] MEDS: PHENOBARBITAL 32.4 MG PO SCH ×3 (08:45→21:19)
[2018-07-10] MEDS: ERTAPENEM 1 GM in NS 100 ML IV SCH (08:45)
[2018-07-10] MEDS: ONDANSETRON 4 MG/2 ML VIAL IVP PRN (08:47)
[2018-07-10] MEDS: Difluprednate [Durezol] 1 DROP LEFTEYE SCH ×3 (08:54→21:20)
--- NOTE | 2018-07-10 10:56 | SOAPPROG ---
SOAP Progress Note Assessment/Plan: Assessment/Plan: 67yo M POD#1 s/p small bowel resection and appendectomy for internal hernia causing SBO. 70cm small bowel resected NPO. OK for pt to have 1 popsicle today No flatus Pain controlled Ambulate Fleming out tomorrow PT/OT Dispo: continue inpt until return of bowel function. Seen c Dr. Mays S: pain controlled this am. Asking for nieves [place]. No complaints this am O: General: WDWN, no acute distress. Daughter at bedside Clear to auscultation bilaterally, No increased work of breathing Regular rate, no peripheral edema Hypoactive bowel sounds present, mildly distended, soft and non tender Dressings intact no staining Objective: Vital Signs Temp Pulse Resp BP Pulse Ox 37.4 C 72 16 137/75 H 100 07/10/18 08:00 07/10/18 08:00 07/10/18 08:00 07/10/18 08:00 07/10/18 08:00 Laboratory Results 07/09/18 04:42 07/09/18 04:42 07/09/18 07/10/18 07/11/18 05:59 05:59 05:59 Intake Total 1250 Output Total 6100 1800 Balance -6100 -550 ICD10 Worksheet Patient Problems: Problems Problem Status Onset Nausea & vomiting Acute Small bowel obstruction Acute
[2018-07-10] MEDS: HYDROmorphONE/DILAUDID 1 MG/ML INJ IVP PRN (17:04)
[2018-07-11] MEDS: HYDROmorphONE/DILAUDID 1 MG/ML INJ IVP PRN (01:15)
[2018-07-11] MEDS: LORazepam 2 MG/ML INJ IVP PRN (01:45)
[2018-07-11] MEDS: NS 1,000 ML IV SCH (01:47)
[2018-07-11] MEDS: KETOROLAC 30 MG/1 ML SDV IVP PRN ×3 (05:16→23:51)
[2018-07-11] MEDS: PHENOBARBITAL 32.4 MG PO SCH ×3 (08:37→21:24)
[2018-07-11] MEDS: PHENYTOIN SODIUM 100 MG/2 ML VIAL IV SCH (08:37)
[2018-07-11] MEDS: ERTAPENEM 1 GM in NS 100 ML IV SCH (08:39)
[2018-07-11] MEDS: Difluprednate [Durezol] 1 DROP LEFTEYE SCH ×3 (08:39→21:23)
--- NOTE | 2018-07-11 13:02 | SOAPPROG ---
SOAP Progress Note Assessment/Plan: Assessment: 67yo M c SBO s/p ex-lap, small bowel resection, appendectomy, anastomosis and washout - VSS, HDs - pain is well controlled, transition to PO - abdomen is soft, Incision covered with clean dressing. Has bowel sounds and is having BMs. Adv to CLD - dc mujica Plan: 07/08/18 13:01 07/09/18 08:45 07/11/18 13:01 Subjective: feels well, wants to eat and go home Objective: Vital Signs Temp Pulse Resp BP Pulse Ox 36.6 C 55 L 14 120/64 89 L 07/11/18 07:55 07/11/18 07:55 07/11/18 07:55 07/11/18 07:55 07/11/18 07:55 Laboratory Results 07/09/18 04:42 07/09/18 04:42 07/10/18 07/11/18 07/12/18 05:59 05:59 05:59 Intake Total 1250 2215 Output Total 1800 515 Balance -550 1700 ICD10 Worksheet Patient Problems: Problems Problem Status Onset Nausea & vomiting Acute Small bowel obstruction Acute
[2018-07-11] MEDS: oxyCODONE IR 5 MG TAB PO PRN ×2 (13:09→19:49)
[2018-07-11] MEDS: PHENYTOIN SODIUM EXTENDED 100 MG CAP PO SCH ×2 (16:14→21:24)
[2018-07-11] MEDS: ACETAMINOPHEN 325 MG TAB PO PRN (17:50)
[2018-07-12] MEDS: HYDROmorphONE/DILAUDID 1 MG/ML INJ IVP PRN ×3 (01:12→16:51)
[2018-07-12] MEDS ORDERED: HYDROmorphONE/DILAUDID 1 MG/ML INJ IVP ONE (02:00)
--- NOTE | 2018-07-12 04:39 | GOP ---
DATE OF OPERATION: 07/09/2018 SURGEON: Syed Martell MD TRANSCRIBING MACHINE OPERATOR: ESTRELLITA Mcmillan. ANESTHESIA: General endotracheal. ANESTHESIOLOGIST: Dr. Rubio and Dr. Maher. PREOPERATIVE DIAGNOSIS: Small-bowel obstruction. POSTOPERATIVE DIAGNOSIS: Necrotic bowel, secondary to internal hernia. PROCEDURE PERFORMED: 1. Exploratory laparoscopy converted to exploratory laparotomy. 2. Lysis of adhesions with reduction of internal hernia. 3. Small bowel resection with subsequent primary anastomosis. 4. Appendectomy. 5. Abdominal washout. 6. Incisional hernia repair. FINDINGS: It appeared as though a loop of small bowel had herniated through an internal hernia creat ed by an adhesion from the omentum to the abdominal wall. About 70 cm of small bowel was compromised and subsequently resected. The remainder of the bowel was healthy and put back together with a prim jewels anastomosis. The appendix appeared healthy; however, given his proclivity for forming scar tissu e, the decision was made to take it. The abdomen was washed out. The anastomosis was widely patent, and incisional hernia adjacent to the umbilicus was fixed upon closure. SPECIMENS: Small bowel and appendix. ESTIMATED BLOOD LOSS: 75 cc. DESCRIPTION OF PROCEDURE: The patient was greeted in the preoperative suite. Once again, risks, alia efits, and alternatives were discussed. Consent was signed. He was then brought back to the operati ve suite and positioned on the OR table in supine position. After all anesthesia machines, including SCDs were on and functioning, [employer] time-out was performed. After successful in duction of general anesthesia, the patient's abdomen was prepped and draped in the typical sterile fa shion. I commenced the procedure by making a left upper quadrant cutdown all the way into the abdome n. My 5 mm trocar was then placed bluntly into the abdomen, and the abdomen was insufflated to 15 mm Hg CO2, which was well tolerated by the patient. I then placed the camera within the abdomen. Given the degree of small bowel dilatation, I could not visualize much, but could see something in the mid line that appeared to be some kind of scar tissue. I could not really visualize the small bowel well , so I placed an additional 5 mm trocar in the right lower quadrant under direct visualization. Imag ing the abdomen through this, I could see that there was some necrotic bowel and what appeared to be an adhesion in the midline, which was causing this subsequent pathology. The decision was made, at t his point in time, to convert to laparotomy. I made a generous midline incision. I identified this internal hernia defect and successfully lysed it from the abdominal wall. I could tell the area of t he small bowel that had herniated through this, and it was approximately 70 cm in length. All of thi s bowel was taken out and visualized, but it was clearly necrotic and was not going to pink up. The decision was made to resect this portion. The proximal and distal ends were stapled off with ANDREA 75 blue load stapler. The mesentery was taken successfully with the Harmonic scalpel, and the specimen was passed off. The 2 ends were allowed to then go back into the patient's abdomen. Again, there we re multiple adhesions to the anterior abdominal wall adjacent to this, which were lysed. He also had an adhesion of omentum in the right lower quadrant, which was around the cecum and ascending colon. This was lysed as well. I identified the appendix, which did appear normal. The cecal base was hea lthy. Given his proclivity for forming scar tissue and my desire to not have to go back into his abd omen ever again, the decision was made to take the appendix. I created a defect at the appendiceal b ase. I stapled off the appendix with a single fire ANDREA blue load stapler. The mesentery of the appe ndix was taken with the Harmonic scalpel. The base was then oversewn with interrupted 3-0 Vicryl sti tches. I then ran the entire remainder of the small and large bowel, and found no other significant findings. Again, the remainder of the small bowel appeared healthy. I turned my attention now towar ds anastomosis. The 2 ends were brought together in antimesenteric fashion. Enterotomies were made on both the proximal and distal ends, and a common enterotomy was made with a single fire of the ANDREA 75 blue load stapler. This common enterotomy was closed with an additional fire of the same stapler. This staple line was then oversewn with multiple interrupted 3-0 Vicryl stitches. The anastomosis was widely patent and well perfused. I then closed the mesenteric defect with a running 3-0 Vicryl. Again, interrogated the abdomen and found no other significant pathology. No other adhesions were p resent at this time. I then washed the abdomen out with 3 L sterile saline noting clear effluent in the suction canister. I then turned my attention toward closing. I ran the midline with a running # 1 PDS. He did have a small hernia adjacent to the umbilicus from his previous midline incision. Thi s was successfully reduced and closed with a #1 PDS. The fascia was well approximated. It was infil trated with local anesthesia. The subcutaneous tissue was irrigated, and the skin was closed with st aples. A sterile dressing was placed. The patient was then extubated in the operative suite and lalo en to the PACU in satisfactory condition. DRAINS: None. COUNTS: All counts were reported as correct x2. /[id number]/MODL
[2018-07-12] MEDS: PHENOBARBITAL 32.4 MG PO SCH ×3 (08:20→22:23)
[2018-07-12] MEDS: ERTAPENEM 1 GM in NS 100 ML IV SCH (08:20)
[2018-07-12] MEDS: PHENYTOIN SODIUM EXTENDED 100 MG CAP PO SCH ×3 (08:20→20:19)
[2018-07-12] MEDS: Difluprednate [Durezol] 1 DROP LEFTEYE SCH ×3 (08:50→22:23)
--- NOTE | 2018-07-12 12:43 | ASMTCMCOM ---
CM Note CM Note Notes: Met with pt to discuss dc poc. PT/OT recommend home care. Pt declines, states he has a small 1 level home and his dtr lives 10 minutes away. Anticipates lots of help from friends as well, CM available for any changes. DC Plan: Independent Date Signed: 07/12/2018 12:42 PM Electronically Signed By:Heide Lloyd RN
[2018-07-12] MEDS: oxyCODONE IR 5 MG TAB PO PRN ×2 (14:55→20:19)
[2018-07-12] MEDS ORDERED: MAGNESIUM HYDROXIDE 30 ML UDCUP PO PRN (15:35)
[2018-07-12] MEDS ORDERED: BISACODYL 10 MG SUPP PR PRN (15:35)
[2018-07-12] MEDS ORDERED: SENNOSIDES 1 TAB PO ONE (16:37)
[2018-07-12] MEDS: POLYETHYLENE GLYCOL 3350 17 GM PKT PO PRN ×2 (16:51→16:58)
[2018-07-12] MEDS ORDERED: SENNOSIDES/DOCUSATE SODIUM TAB PO ONE (17:10)
[2018-07-12] MEDS: SENNOSIDES/DOCUSATE SODIUM TAB PO SCH ×2 (17:15→20:19)
[2018-07-12] MEDS: NS 1,000 ML IV SCH (18:17)
[2018-07-13] MEDS: oxyCODONE IR 5 MG TAB PO PRN (03:04)
[2018-07-13] MEDS: NS 1,000 ML IV SCH (06:10)
[2018-07-13 07:56] VITALS: BP 133/70
[2018-07-13] MEDS: ERTAPENEM 1 GM in NS 100 ML IV SCH (09:44)
[2018-07-13] MEDS: PHENYTOIN SODIUM EXTENDED 100 MG CAP PO SCH (09:45)
[2018-07-13] MEDS: SENNOSIDES/DOCUSATE SODIUM TAB PO SCH (09:45)
[2018-07-13] MEDS: Difluprednate [Durezol] 1 DROP LEFTEYE SCH (09:46)
[2018-07-13] MEDS: PHENOBARBITAL 32.4 MG PO SCH (10:09)
[2018-07-13] MEDS ORDERED: LIDOCAINE 2% 5 ML SDV ID ONE (11:30)
--- NOTE | 2018-07-13 12:22 | POSTOPPROG ---
Post Op Note Date of Operation: 07/13/18 Surgeon: Martin Schwartz Anesthesia: Local (Specify) Pre-op Diagnosis: INFECTED SEBACEOUS CYST RIGHT CHEST Post-op Diagnosis: SAME Indication: PAIN Procedure: I&D INFECTED SEBACEOUS CYST Findings: 80CC OF PUS Inf/Abcess present in the surg proc area at time of surgery?: Yes Depth: Superfical (Skin SQ) EBL: Minimal Complications: 0
--- NOTE | 2018-07-13 12:25 | SOAPPROG ---
SOAP Progress Note Assessment/Plan: Assessment: DOING OK FROM ABD SURGERY WITH FLATUS AND BMS/ WANTS TO GO HOME EATING WELL AFEBRILE, VS STABLE WOUND OK, SOFT, +BS NEW INFECTED 6CM SEBACEOUS CYST RIGHT ANT CHEST Plan:I&D/ HOME ON KEFLEX 07/13/18 12:23 Objective: Vital Signs Temp Pulse Resp BP Pulse Ox 36.8 C 60 16 133/70 H 92 07/13/18 07:56 07/13/18 07:56 07/13/18 07:56 07/13/18 07:56 07/13/18 07:56 Laboratory Results 07/09/18 04:42 07/09/18 04:42 07/12/18 07/13/18 07/14/18 05:59 05:59 05:59 Intake Total 250 1850 1259 Output Total 200 1505 800 Balance 50 820 269 ICD10 Worksheet Patient Problems: Problems Problem Status Onset Nausea & vomiting Acute Small bowel obstruction Acute
--- NOTE | 2018-07-13 13:08 | ASMTDCNOTE ---
Case Management Discharge Discharge Order Complete? Answers: Yes Patient to Obtain Answers: via Family Medications Transportation Arranged Answers: Family/Friends Transport will Pick (Date 07/13/2018 12:00 AM & Time) Family Notified Answers: Yes Notes: pt called dtr for ride Discharge Comments Notes: Spoke with pt in the room. Pt insists he is declining home care at this time. Pt's dtr lives nearby and is available to help with needs, describing her as "an ironmaid". PT recommending home care if home bound. OT recommending independent discharge. No CM needs noted at this time. Date Signed: 07/13/2018 01:07 PM Electronically Signed By:Ashleigh Bennett
--- NOTE | 2018-07-13 13:12 | ASDISCHSUM ---
Discharge Information Plan Status:Home with No Needs Medically Cleared to Leave:07/12/2018 Discharge Date:07/12/2018 CM D/C Disposition:Home, Routine, Self-Care ADT D/C Disposition:Home, Routine, Self-Care Projected Discharge Date:07/12/2018 Transportation at D/C:Family Discharge Delay Reason: Follow-Up Date:07/12/2018 Discharge Slot: Final Diagnosis:Small Bowel Obstruction Placement Information Patient Contact Information Contact Name:THEE Relationship:Daughter Address: City: [facility] Phone: State/Zip Code:[place] Email: Financial Information Financial Class:Medicare Advantage Plans Primary Plan Desc:[facility] MEDICARE Primary Plan Number:[id number] Secondary Plan Desc: Secondary Plan Number: Assessment Information LACE LACE Length of stay for Answers: 4-6 days current admission Acuity / Level of Answers: Yes Care: Did the patient have an inpatient admission? Comorbidities - select Answers: Any tumor (including all that apply lymphoma or leukemia) Other Notes: Seizure disorder # of Emergency department Answers: 1-2 visits in the last 6 months Score: 11 Date Signed: 07/13/2018 01:10 PM Electronically Signed By:Ashleigh Bennett [facility] Initial CM Assessment Living Arrangements What is your living Answers: Alone arrangement? Who do you live with? Type Of Residence What kind of residence do Answers: Apartment you live in? Discharge Plan Comments Coordination Status Comments Notes: Patient is a 67yo male who comes to [facility] with abdominal pain, nausea, and vomiting. Patient has been admitted for acute bowel obstruction, nausea and vomiting. Spoke with the patient's nurse who states patient went to the OR today for exploration. PT has been ordered for the patient. D/C plan TBD. CM will follow. Date Signed: 07/09/2018 02:45 PM Electronically Signed By:Corinna Dodd LCSW [facility] CM Progress Note CM Note CM Note Notes: Met with pt to discuss dc poc. PT/OT recommend home care. Pt declines, states he has a small 1 level home and his dtr lives 10 minutes away. Anticipates lots of help from friends as well, CM available for any changes. DC Plan: Independent Date Signed: 07/12/2018 12:42 PM Electronically Signed By:Heide Lloyd RN Case Management Discharge Plan Note Case Management Discharge Discharge Order Complete? Answers: Yes Patient to Obtain Answers: via Family Medications Transportation Arranged Answers: Family/Friends Transport will Pick (Date 07/13/2018 12:00 AM & Time) Family Notified Answers: Yes Notes: pt called dtr for ride Discharge Comments Notes: Spoke with pt in the room. Pt insists he is declining home care at this time. Pt's dtr lives nearby and is available to help with needs, describing her as "an ironmaid". PT recommending home care if home bound. OT recommending independent discharge. No CM needs noted at this time. Date Signed: 07/13/2018 01:07 PM Electronically Signed By:Ashleigh Bennett Intervention Information
--- NOTE | 2018-07-14 12:18 | GCON ---
HISTORY OF PRESENT ILLNESS: Patient is a 67-year-old male in the hospital after a small bowel resect ion for internal hernia with bowel necrosis. He is doing reasonably well postop, but has developed f ever and some pain in an area on his right anterior chest, which appears to be a large infected sebac eous cyst. He has had a cyst there for some time. He has had other cyst removed from his back, but has noted this becoming progressively red and tender over the last week. PAST MEDICAL HISTORY: Includes recent small bowel resection for internal hernia, necrotic bile. He has had multiple eye surgeries. 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 He has had a colectomy for colon cancer, and he has a seizure disorder. MEDICATIONS: Dilantin, phenobarb, and phenytoin. ALLERGIES: None. FAMILY HISTORY: Noncontributory. REVIEW OF SYSTEMS: Negative, except as related to this present illness in a full 10-point review. SOCIAL HISTORY: Reveals he does not smoke. PHYSICAL EXAMINATION: GENERAL: An alert, cooperative 67-year-old male in no acute distress. HEAD/N [place] FRANCIS[place]: Reveals no icterus or adenopathy. He does have ptosis of his left eyelid with poor vision in t he left eye. CHEST: Clear. CARDIAC: Regular rhythm. ABDOMEN: Soft with well-healing midline abd ominal incision. GENITALIA: Normal. EXTREMITIES: Benign. Full range of motion. Full pulses. IMPRESSIONS: Infected sebaceous cyst of the right anterior chest wall. PLAN: I and D and antibiotics. Risks and options have been fully discussed. /[id number]/MODL
--- NOTE | 2018-07-14 13:31 | GOP ---
DATE OF OPERATION: 07/13/2018 SURGEON: Martin Schwartz MD PREOPERATIVE DIAGNOSIS: Infected sebaceous cyst of right chest wall. POSTOPERATIVE DIAGNOSIS: Infected sebaceous cyst of right chest wall. PROCEDURE PERFORMED: Incision, drainage and debridement. FINDINGS: Patient was found to have a very large infected sebaceous cyst with over 60 to 80 cc of pus and old sebaceous material in this cyst. DESCRIPTION OF PROCEDURE: Patient was consented. Risks and options were fully discussed. The area was cleansed with ChloraPrep and draped in a sterile manner. The area was infiltrated with 1% Xylocaine local infiltration. Transverse incision was made over the fluctuant mass with release of a large volume of purulent sebaceous material. This was all irrigated clear until it was essentially emptied. It was then packed with some iodoform gauze and the area was further infiltrated with 1% Xylocaine. He tolerated the procedure quite well. Blood loss negligible. No complications. Care instructions have been given, and we will see him in the office in 2 days for dressing change. /[id number]/MODL MTDD
== END 2018-07-13 15:18 | disposition home or self-care (01) | DRG 331 ==
LOC: OBSVTOIN 11:18 → F3N 12:22 → F3E 07-08 13:01
PROVIDERS: ADMIT Surgery; ATTEND Surgery
DX: K56.50 Intestinal adhesions [bands], unspecified as to partial versus complete obstruction (principal); L72.3 Sebaceous cyst; Z53.31 Laparoscopic surgical procedure converted to open procedure; E86.9 Volume depletion, unspecified; K46.9 Unspecified abdominal hernia without obstruction or gangrene
CPT/HCPCS: 96374; 97110-GP; 97116-GP; 97162-GP; 97166-GO; 97535-GO; J0690; J1100; J1165; J1170; J1200; J1335; J1885; J2060; J2250; J2270; J2370; J2405; J2550; J2560; J2704; J2765; J3010; Q9967

== ENCOUNTER → 2018-11-13 | Outpatient (CLI) | payer OTHER | LOC: FIMAGING 10:21 | PROVIDERS: ATTEND Psychiatry & Neurology Neurology | DX: Z13.820 Encounter for screening for osteoporosis (principal); M81.0 Age-related osteoporosis without current pathological fracture; G40.909 Epilepsy, unspecified, not intractable, without status epilepticus ==